=== PATIENT | female | born 1995 | race Caucasian/White ===

== ENCOUNTER 2016-10-03 08:00 | Inpatient (IN) ==
[2016-10-03] MEDS ORDERED: miSOPROStol 25 MCG TABLET PO PRN (08:41)
[2016-10-03] MEDS ORDERED: Metoclopramide 10 MG/2 ML VIAL IVP PRN (08:41)
[2016-10-03] MEDS ORDERED: Ondansetron 4 MG/2 ML VIAL IVP PRN (08:41)
[2016-10-03] MEDS ORDERED: Famotidine 20 MG/2 ML VIAL IVP PRN (08:41)
[2016-10-03] MEDS ORDERED: *HR* Nalbuphine 20 MG/ML AMPUL IVP PRN (08:43)
[2016-10-03] MEDS ORDERED: Ringers Solution, Lactated 1,000 ML IVC SCH (08:45)
[2016-10-03 09:31] LABS: Basophils % 0.5 %; Eosinophils # 0.1 K/mcL (0.0-0.6); Eosinophils % 0.8 %; Hematocrit 38.1 % (35.3-44.9); Immature Granulocytes % 0.7 % (0-4); Immature Platelets 6.1 % (1.1-6.1); Lymphocytes # 1.9 K/mcL (0.6-4.6); Lymphocytes % 22.8 %; Mean Corpuscular HGB Conc 34.1 g/dL (31.6-35.5); Mean Corpuscular Hemoglobin 31.8 pg (28.0-33.3); Mean Corpuscular Volume 93.2 fL (83.0-100.0); Mean Platelet Volume 10.9 fL (9.4-12.4); Monocytes # 0.8 K/mcL (0.0-1.3); Monocytes % 9.5 %; Neutrophils # 5.6 K/mcL (1.6-8.9); Platelet Count 204 K/mcL (140-400); Red Blood Count 4.09 M/mcL (3.82-4.97); Red Cell Distribution Width 12.6 % (11.5-14.5); Segmented Neutrophils % 65.7 %
--- NOTE | 2016-10-03 09:34 | OB/GYN History & Physical ---
Date of Encounter: 10/03/16 Time of Encounter: 09:31 Assessment and Plan (1) 39 weeks gestation of Current visit: Yes Status: Acute Admit for induction of labor. (2) Gestational diabetes mellitus (GDM) affecting first Current visit: Yes Status: Acute Glucose with admission labs. History of Present Illness Chief complaint: Scheduled induction of labor 39.1 wks for GDM HPI: Ms. Jett is a 21 year old female at 39w1d here for induction of labor. Pt reports + movement, denies LOF, VB or ctx. Pt is diet controlled GDM. Fasting BS in 70's, postprandial in the 90's, EFW 56 percentile, RAUL 20 cm with 8 cm largest pocket. Blood type B-, Rubella unknown at this time, HBSAG NR, GBS negative. Past Med Surg Social Fam HX - Past Medical History Source: patient Medical history: no medical history Psychiatric history: no psych history - Past Surgical History Surgical History: no surgical history - Social History Smoking Status: Never smoker Smokeless Tobacco Status: No Alcohol use: none Drug use: none Occupational status: employed Current living situation: Home - Independent Activity Level: Independent ambulation Recent Out of Country Travel Within the Last 8 Weeks: No Exposure or Possible Exposure to Illness During Travel: No - Family History Father Living Status: Still Living Hx Family Cardiac Disorders: Yes (HYPERTENSION) Hx Family Neurologic Disorders: Yes (MIGRAINES) Obstetrical History - Pregnancies : 1 Para: 0 Term: 0 : 0 Ab's: 0 Livin - History/Complications History/Complications: Diet controlled gestational diabetes Medications and Allergies Ferrous Sulfate [Iron] 1 tab PO DAILY 10/03/16 [History] Folic Acid [Folic Acid] 1 tab PO DAILY 10/03/16 [History] Vit Calc,Iron,Folic [ Vitamins] 1 tab PO DAILY 10/03/16 [ History] 3 Allergy/AdvReac Type Severity Reaction Status Date / Time No Known Allergies Allergy Verified 10/03/16 08:38 Review of System OB All systems PM: reviewed and no additional remarkable complaints except as stated Exam - Constitutional Constitutional: well developed, well nourished, no acute distress - HEENT HEENT: PERRL - Neck Neck exam: full ROM, normal inspection - Lungs Respiratory exam: CTAB - Cardiovascular Cardiovascular exam: RRR - Breasts Breast: bilateral: normal - Abdomen Abdomen: Present: bowel sounds normal, gravid, non tender - Extremities Extremities exam: normal capillary refill, normal inspection, radial pulses palpable and symmetrical - Uterus Uterus exam: Present: normal size Results All other labs normal. - VTE Reasons for not Prescribing Prophylaxis: Treatment not Indicated - Low risk for VTE
--- NOTE | 2016-10-03 09:44 | OB Labor Progress Note ---
Date of Encounter: 10/03/16 Time of Encounter: 09:41 Labor Progress Note - Subjective Subjective: Pt denies pain. PO Cytotec given. - Heart Tones Heart Tones: 135 bpm with 15x15 accelerations, Category I tracing. - Mather Mather: None noted - Interventions Interventions: Dr. James notified of POC - Plan Plan: Induction of labor started. Pt may have pain medication if desired.
--- NOTE | 2016-10-03 13:24 | OB Labor Progress Note ---
Date of Encounter: 10/03/16 Time of Encounter: 13:22 Labor Progress Note - Subjective Subjective: Patient in bed doing well. Denies any pain at this time. Patient reports feeling contractions. - Cervix Cervix: 3.5/80/-1 - Heart Tones Heart Tones: 130 bpm moderate variability +15x15 accels no decels noted - [place]: 1-5cm apart - Interventions Interventions: AROM for copious amount of clear fluid. - Plan Plan: Continue labor management
--- NOTE | 2016-10-03 15:58 | OB Labor Progress Note ---
Date of Encounter: 10/03/16 Time of Encounter: 14:41 Labor Progress Note - Subjective Subjective: Pt reports feeling contractions at this time. Interested in IV pain medication. RN notified that patient would like Nubain. - Cervix Cervix: 5/100/-1 - Heart Tones Heart Tones: 130 bpm, moderate variability, + accels, no decels - [place]: Ctx q 2-3 minutes - Interventions Interventions: SVE - Plan Plan: Pain medication Continue labor management
[2016-10-03] MEDS ORDERED: Lidocaine 1% 20 ML MDV ONE (16:58)
[2016-10-03] MEDS ORDERED: Oxytocin 20 units/ LR 1000 mL 20 UNIT/1,000 ML BAG IVC ONE ×2 (17:18→21:20)
--- NOTE | 2016-10-03 19:50 | OB/GYN Procedure Note ---
Delivery - Delivery Date: 10/03/16 Provider: Ayesha Iglesias (LATRICIA Suazo) Intrapartum events: none Delivery induction: AROM, misoprostol Delivery monitor: external FHT, external uterine Anesthesia: local Estimated Blood Loss: 200 - Infant (s) Infant A Delivery Date: 10/03/16 Delivery Time: 18:55 Presentation: vertex Position: OA Route of delivery: Gender: Male Viability: Viable Pounds: 7 Ounces: 8 Weight Gram: 3.395 kg at 1 minute: 8 at 5 mins: 9 Shoulder Dystocia: not encountered Specimens collected: cord blood Placenta: spontaneous Cord: 3 umbilical vessels - Repair Episiotomy: none Laceration Description: Perineal - 1st Degree (repaired with 3-0 vicryl) - Complications Delivery complications: none - Disposition Mom disposition: stable in LDR disposition: stable in LDR - Comments Comments: Under maternal effort patient spontaneously delivered a male infant. No nuchal cord, shoulder dystocia or meconium was noted. was placed on maternal abdomen. Cord was clamped and cut after pulsation ceased. A first degree perineal laceration was noted. 1% lidocaine was used to anesthetize for repair. A 3-0 vicryl was used to repair laceration. Patient tolerated well. Placenta delivered spontaneously and intact. All counts correct. Pericare provided, ice pack to perineum. Both mother and infant stable in LDR for 2 hour recovery. LATRICIA Doe at bedside for delivery under supervision of Ayesha Iglesias CNM. Repair was completed by Ayesha Iglesias CNM
[2016-10-03] MEDS ORDERED: Rho Immune Globulin 1,500 UNIT SYRINGE IM PRN (22:03)
[2016-10-03] MEDS ORDERED: *HR* HYDROcodone/Acet 5/325 mg TABLET PO PRN (22:03)
[2016-10-03] MEDS ORDERED: Measles/Mumps/Rubella Vacc 0.5 ML VIAL SQ PRN (22:03)
[2016-10-03] MEDS ORDERED: Oxytocin 20 units/ LR 1000 mL 20 UNIT/1,000 ML BAG IVC SCH (22:03)
[2016-10-03] MEDS ORDERED: Ibuprofen 600 MG TABLET PO PRN (22:03)
[2016-10-03] MEDS ORDERED: Acetaminophen 325 MG TABLET PO PRN (22:03)
[2016-10-04] MEDS ORDERED: Prenatal Vit/FA 1 EACH TABLET PO SCH (09:00)
--- NOTE | 2016-10-04 09:50 | Discharge Summary ---
Date of Encounter: 10/04/16 Time of Encounter: 09:48 - Discharge Diagnosis (1) Vaginal delivery Priority: Primary Status: Acute Comments: Meeting all milestones, , denies pain, desires discharge. - Discharge Medications Home Medications: Folic Acid 1 tab PO DAILY 10/03/16 [History] Vit Calc,Iron,Folic [ Vitamins] 1 tab PO DAILY 10/03/16 [ History] Acetaminophen [Tylenol] 650 mg PO Q6HR PRN tab 10/04/16 [Rx] Docusate [Colace] 100 mg PO BID 10/04/16 [Rx] Ibuprofen [Motrin] 600 mg PO Q6HR PRN tab 10/04/16 [Rx] Vit/FA 1 each PO DAILY tab 10/04/16 [Rx] Allergies/Adverse Reactions: 3 Allergy/AdvReac Type Severity Reaction Status Date / Time No Known Allergies Allergy Verified 10/03/16 08:38 Data Procedures and tests throughout hospitalization: Laboratory Tests 10/03/16 10/03/16 10/03/16 09:15 09:15 19:26 WBC 8.5 RBC 4.09 Hgb 13.0 Hct 38.1 MCV 93.2 MCH 31.8 MCHC 34.1 RDW 12.6 Plt Count 204 MPV 10.9 Immature Gran % 0.7 Seg Neutrophils % 65.7 Lymphocytes % 22.8 Monocytes % 9.5 Eosinophils % 0.8 Basophils % 0.5 Neutrophils # 5.6 Lymphocytes # 1.9 Monocytes # 0.8 Eosinophils # 0.1 Basophils # 0.0 Immature Plt Fraction 6.1 Glucose 72 Baby's Blood Type O RH NEGATIVE Mother's Blood Type B RH NEGATIVE Rhogam Indicated NO Labs on day of discharge: Labs from last 24 hours 10/03/16 19:26 Baby's Blood Type O RH NEGATIVE Mother's Blood Type B RH NEGATIVE Rhogam Indicated NO Date of admission: 10/03/16 08:20 Primary care physician: PCP NONE Consults: 10/03/16 22:03 Consult to Technical Support Engineer [CONS] Routine Comment: Vaginal delivery, consult needed Discharging clinician: Caitlin Llanes Anticipated date of discharge: 10/04/16 - Patient Status Disposition: Home, Self-Care Condition: Good Functional capacity at discharge: independent ambulation Overall status at discharge: patient is back to baseline - Discharge Instructions Follow Up With: NONE,PCP [Primary Care Provider] - Hospital Course Reason for admission: induction of labor, IUP at term Delivery: Episiotomy: none Laceration: 1st degree complications: perineal laceration Discharge diagnosis: IUP at term delivered baby: male Hospital course: Delivery - Delivery Date: 10/03/16 [facility] Intrapartum events: none Delivery induction: AROM, misoprostol Delivery monitor: external FHT, external uterine Anesthesia: local Estimated Blood Loss: 200 - (s) A Delivery Date: 10/03/16 Delivery Time: 18:55 Presentation: vertex Position: OA Route of delivery: Gender: Male Viability: Viable Pounds: 7 Ounces: 8 Weight Gram: 3.395 kg at 1 minute: 8 at 5 mins: 9 Shoulder Dystocia: not encountered Specimens collected: cord blood Placenta: spontaneous Cord: 3 umbilical vessels - Repair Episiotomy: none Laceration Description: Perineal - 1st Degree (repaired with 3-0 vicryl) - Complications Delivery complications: none - Disposition Mom disposition: stable in PP and appropriate for discharge Time Attestation: Total time spent providing and/or coordinating discharge services: Time Spent: Less than 30 minutes Exam - Constitutional Vitals: Temp Pulse Resp BP Pulse Ox 98.3 F 84 16 102/64 99 10/04/16 08:04 10/04/16 08:04 10/04/16 08:04 10/04/16 08:04 10/04/16 08:04 General appearance IM: A&O X 3 - Respiratory Respiratory exam: Present: CTAB - Cardiovascular Cardiovascular exam IM: Present: RRR - GI/Abdominal GI/Abdominal exam IM: normal bowel sounds, soft - Uterine Tone: Firm Uterus Position: 1 Finger Below Umbilicus - Extremities Exam Extremities exam IM: Present: normal capillary refill, normal inspection - Neurological Exam Neurological exam: normal gait, oriented X3 - Psychiatric Additional comments: Reports good mood
[2016-10-04 11:51] LABS: Varicella Zoster IgG Antibody Negative
[2016-10-04 16:26] VITALS: BP 94/59
[2016-10-06 11:35] LABS: Rubella IgG Antibody NEGATIVE (POSITIVE)
== END 2016-10-04 18:02 | disposition home or self-care (01) | DRG 775 ==
LOC: 1NENULAB 08:20 → 1NENUOBS 22:00
PROVIDERS: ADMIT Advanced Practice Midwife; ATTEND Advanced Practice Midwife